=== PATIENT | male | born 1955 | race Caucasian/White ===

== ENCOUNTER → 2019-03-06 | Outpatient (CLI) | payer OTHER ==
[~2019-03-06] MED LIST: ATIVAN0.5 MG PO; CYCLOBENZAPRINE10 MG PO; HYDROCODON-ACE1 EAC7 PO; IBUPROFEN 200200 M1 PO; LISINOPRIL10 MG PO; MAGNESIUM OXID400 MG PO; PRILOSEC 20 MG20 MG PO; PRILOSEC40 MG PO; ZESTORETIC 20-1 EAC3 PO
== END ==
LOC: CAT 08:41
PROVIDERS: Family Medicine
DX: R91.1 Solitary pulmonary nodule (principal); J84.10 Pulmonary fibrosis, unspecified; I25.10 Atherosclerotic heart disease of native coronary artery without angina pectoris

== ENCOUNTER → 2021-01-28 | Outpatient (CLI) | payer OTHER ==
[~2021-01-28] VITALS: Ht 182.9 cm; Wt 102.1 kg
[~2021-01-28] MED LIST changes: +AMLODIPINE BESY10 MG PO; +LIPITOR 20 MG T20 M1 PO; +MELATONIN10 M3 PO; +MULTI VITAMIN1 EACH PO; +OMEPRAZOLE 20 M20 M1 PO; +VITAMIN B122500 MCG PO
--- NOTE | 2021-01-30 10:36 | P ---
[facility] [place] [address] PROCEDURE REPORT Name: ANTONIO AMOS Room #: [facility]#: [id number] Admission: 01/28/21 Attend Phys: Tanner Chatman Discharge: Date of : 59 Report #: [id number] THIS REPORT FOR: cc: Christiano Person James A. DO McElhinney, Christian C. MD ~ cc: Christiano Person DO DATE OF SERVICE: 01/28/2021 PROCEDURE PERFORMED: Upper endoscopy with biopsies. HISTORY OF PRESENT ILLNESS: The patient is a 65-year-old male with a history of gastroesophageal reflux disease and Knight's esophagus. Last upper endoscopy was in 03/2016. Biopsies at that time showing Knight's and no dysplasia. He does take Prilosec 20 mg on a daily basis. He denies any heartburn symptoms or dysphagia. He does complain of abdominal bloating. Plan is for upper endoscopy. DESCRIPTION OF PROCEDURE: The risks and benefits of the procedure were explained to the patient, those risks including but not limited to bleeding, perforation and the risk of sedation. He understood these risks and gave informed consent. Sedation was given using propofol per anesthesia. Next, using a standard Olympus upper endoscope, the scope was placed in the patient's mouth and advanced under direct vision through the esophagus, stomach and into the second portion of the duodenum. The larynx was normal in appearance. The upper and mid esophagus was normal. In the distal esophagus, a short segment of Knight's was again noted. Biopsies were obtained. Upon entering the stomach, a small hiatal hernia was noted. There was a mild gastritis. Biopsies were obtained to rule out H. pylori. No evidence of ulcerations or erosions. The pylorus was normal and patent. The duodenal bulb, first and second portion were all normal. Biopsies were obtained to rule out the possibility of celiac sprue. The scope was then withdrawn and the procedure terminated. The patient tolerated the procedure well. IMPRESSION: 1. Short segment Knight's esophagus. 2. Hiatal hernia. 3. Mild gastritis. 4. Otherwise, normal upper endoscopy. RECOMMENDATIONS: 1. Await biopsy results. 2. Continue daily PPI therapy. [address] [address] PROCEDURE REPORT Name: ANTONIO AMOS Room #: REG Eunice Garcia#: [id number] Admission: 01/28/21 Attend Phys: Tanner Chatman Discharge: Date of : 59 Report #: [id number] Thank you for allowing me to participate in his care. <ELECTRONICALLY SIGNED> By: Tanner Marsh MD 01/30/21 1036 0815 43 Tanner Marsh MD /nt
--- NOTE | 2021-01-30 18:06 | PATH ---
[facility] [address] [address] PATHOLOGY RPT PROCEDURE Name: EVER ROBLES Room #: REG CL MNicoleR.#: [id number] Admission: 01/28/21 Date of : 59 Discharge: Report #: [id number] Path Case #: [id number] [facility] Accession Number: [id number] . 01 Material submitted: . PART A: duodenum - DUODENAL BX PART B: gastrointestinal site - GASTRITIS BX PART C: esophagus - DISTAL ESOPHAGUS BX. Modifiers: distal . 01 Clinical history: . BECERRA'S ESOPHAGUS HIATAL HERNIA A: R/O SPRUE HX OF ABNORMAL BLOATING B: R/O H. PYLORI C: HX OF BECERRA'S . 01 Diagnosis: A. Duodenum "duodenal biopsy", rule out sprue: - Preserved villous architecture. - There is no evidence of acute cryptitis, granulomas adenomatous change or malignancy. - Diagnostic features of sprue are not present in the biopsy examined. - Suggest clinical and laboratory studies. . B. Gastric biopsy "gastritis, rule out H. pylori": - Mild chronic reactive gastropathy. - The immunoperoxidase stain for H. pylori is negative. - The control worked appropriately. . C. 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 - There is no obvious dysplasia or malignancy. - This case is also reviewed by Dr. Roscoe Montes. (SHA:[facility]; 01/30/2021) [facility] 01/30/2021 1029 Local . 01 Electronically signed: . Deshawn Carrizales MD, Pathologist NPI- [id number] . 01 Gross description: . A. The specimen is received in formalin, labeled "Ever Robles, duodenal BX-R/O sprue" and consists of multiple fitch irregular tissues aggregating 0.8 x 0.5 x 0.2 cm which are submitted in toto in A1. . [address] [address] PATHOLOGY RPT PROCEDURE Name: EVER ROBLES Room #: REG CLI [facility].#: [id number] Admission: 01/28/21 Date of : 59 Discharge: Report #: [id number] Path Case #: [id number] B. The specimen is received in formalin, labeled "Ever Robles, gastritis BX-R/O H. pylori" and consists of 3 fitch irregular tissues aggregating 0.8 x 0.3 x 0.3 cm which are submitted in toto in B1. . C. The specimen is received in formalin, labeled "Travis, Ever, distal esophagus-Hx of Becerra's" and consists of multiple fitch irregular tissues aggregating 0.6 x 0.4 x 0.2 cm which are submitted in toto in C1.(NIKOLSKI; 01/29/2021) DKA/DKA 01/29/2021 1131 Local . 01 Pathologist provided ICD-10: K31.9, K22.10, K22.70 . 01 CPT . 982599, 903351, 361715, F07510 Specimen Comment: A courtesy copy of this report has been sent to [phone] Specimen Comment: [id number] Specimen Comment: Report sent to / DR SERNA Performed at: 01 [facility] [address] [place] [address] [address], [place], [place] [id number] MD Deshawn Carrizales MD Phone: [phone]
== END | disposition home or self-care (01) ==
LOC: GI 06:32
PROVIDERS: ATTEND Specialist
DX: K21.00 Gastro-esophageal reflux disease with esophagitis, without bleeding (principal); K31.9 Disease of stomach and duodenum, unspecified; K22.70 Barrett's esophagus without dysplasia; K44.9 Diaphragmatic hernia without obstruction or gangrene; K29.70 Gastritis, unspecified, without bleeding; I10 Essential (primary) hypertension; E78.00 Pure hypercholesterolemia, unspecified; F41.9 Anxiety disorder, unspecified; G47.30 Sleep apnea, unspecified; F17.210 Nicotine dependence, cigarettes, uncomplicated; Z98.890 Other specified postprocedural states; Z79.899 Other long term (current) drug therapy; Z20.822 Contact with and (suspected) exposure to COVID-19; Z90.49 Acquired absence of other specified parts of digestive tract
CPT/HCPCS: 62110; 62900